=== PATIENT | female | born 1990 | race Two or more races ===

== ENCOUNTER 2025-04-02 11:30 | Outpatient (CLI) | payer OTHER | END 2025-04-02 11:37 | disposition home or self-care (01) | LOC: TOM 11:30 | DX: D25.9 Leiomyoma of uterus, unspecified (principal) | CPT/HCPCS: 72194; Q9965 ==

== ENCOUNTER 2025-04-14 09:37 | Outpatient (CLI) | payer OTHER | END 2025-04-14 09:40 | disposition home or self-care (01) | LOC: SONOGRAMA 09:37 | DX: D50.9 Iron deficiency anemia, unspecified (principal) ==